=== PATIENT | male | born 1975 | race Caucasian/White ===

== ENCOUNTER 2017-04-21 12:11 | Day surgery (SDC) | payer OTHER ==
[2017-04-21] MEDS ORDERED: PROPOFOL 20 ML ×2 (15:16→15:48)
== END 2017-04-21 18:31 | disposition home or self-care (01) ==
LOC: GIL 12:11
DX: Z12.11 Encounter for screening for malignant neoplasm of colon (principal); K64.8 Other hemorrhoids; Z80.0 Family history of malignant neoplasm of digestive organs; E78.00 Pure hypercholesterolemia, unspecified
CPT/HCPCS: 45378